=== PATIENT | male | born 1970 | race Two or more races ===

== ENCOUNTER 2017-05-23 14:35 | Emergency (ER) | payer OTHER ==
[~2017-05-23] VITALS: Ht 188 cm; Wt 77.1 kg
[~2017-05-23 14:35] MED LIST: ENAL-3 PO; HYDR25TA4 PO; METR250T PO; RABE20TA5 PO
[2017-05-23 14:39] VITALS: BP 173/123
== END 2017-05-23 16:46 | disposition home or self-care (01) ==
LOC: ER 14:40
DX: S22.32XA Fracture of one rib, left side, initial encounter for closed fracture (principal); I10 Essential (primary) hypertension; E78.5 Hyperlipidemia, unspecified; K21.9 Gastro-esophageal reflux disease without esophagitis; F17.210 Nicotine dependence, cigarettes, uncomplicated; Z79.899 Other long term (current) drug therapy; Z90.49 Acquired absence of other specified parts of digestive tract; W22.8XXA Striking against or struck by other objects, initial encounter; Y93.89 Activity, other specified; Y92.89 Other specified places as the place of occurrence of the external cause; Y99.8 Other external cause status
CPT/HCPCS: 71101